=== PATIENT | female | born 1970 | race Caucasian/White ===

== ENCOUNTER → 2019-06-12 12:05 | Outpatient (CLI) | payer OTHER, SELFPAY ==
--- NOTE | 2019-06-12 | IMM_PTH ---
PATIENT: ASHA EDUARDO LOC: [facility] U#:[id number] AGE/SX: 54/F ROOM: RE06/12/[address]: Dr. Malgorzata Mccullough MD : 1970 BED: DIS: SPEC #: [id number] RECD: 06/13/19 11:40 STATUS: ALAN REQ #: [id number] SY: 06/12/19 00:[address]: Malgorzata Mccullough DEPT: IMMUNOHISTOCHEMISTRY RECD BY: Esperanza Vicente ENTERED: 06/13/19 11:41 SP TYPE: IMMUNO OTHR DR: Dr. Chandler Gupta MD Tissues: Left breast, NOS Procedures: CALPONIN-1 (add) CK8 (add) E-CAD (add) HER2 SIMBA (add) DC (add) P40 (add) ER (initial) PHYSICIAN & INSTITUTION [place] [address] SPECIMEN INFORMATION: Tissue Source: Left breast Clinical Info: Left breast mass Specimen Number: [id number] CPT code: 88330, 97336 x3, 40873 x3 METHODOLOGY: Deparaffinized sections of prefer/formalin-fixed tissue or PAP/DQ stained slides are incubated with monoclonal/polyclonal antibodies/oligonucleotide probes. Localization is made via biotin free immunoperoxidase method. Appropriate controls are performed and reacted as expected. Results on target cell population are indicated in the following table: RESULTS: ANTIBODY / CLONE RESULT E-Cad (ECH-6) positive CK8 (77ezbiT11) positive Calponin-1 (SS001E) positive P40 (BC28) positive MORPHOMETRIC ANALYSIS ER (clone 6F11) positive (>95%, strong intensity) DC (clone 16/1E2) positive (>95%, strong intensity) Her-2Neu (clone CB11) negative (0) The prognostic test for HER2 is performed on formalin-fixed paraffin embedded tissue. A 3+ (positive) staining pattern is defined as intense, homogeneous, complete, circumferential membranous staining in >10% of contiguous tumor cells. A similar weak (2+) staining pattern is interpreted as equivocal. XOCHITL follow-up testing is recommended for all equivocal cases. Positivity/negativity for ER/DC is reported if > or < 1% of the tumor cells are immuno- reactive, respectively. The ASCO/CAP criteria is used for scoring. Reference: Journal of Clinical Oncology, 2013; 31:3822-3951 & 2010; 16:1888-3296. Duration of fixation: 6.5 Hrs; Sample Adequate: Yes. These assays have not been validated on decalcified tissues. Results should be interpreted with caution given the likelihood of false negativity on decalcified specimens. These tests were developed and their performance characteristics determined by [facility]. They may not have been cleared or approved by the U.S. Food and Drug Administration. The FDA has determined that such clearance or approval is not necessary. INTERPRETATION: Left breast, biopsy: Ductal carcinoma in situ, low nuclear grade. SHOSHANA:barbra 06/13/19
--- NOTE | 2019-06-12 | BRBX_PTH ---
PATIENT: ASHA EDUARDO LOC: [facility] U#:[id number] AGE/SX: 54/F ROOM: RE06/12/[address]: Dr. Malgorzata Mccullough MD : 1970 BED: DIS: SPEC #: [id number] RECD: 06/12/19 13:57 STATUS: ALAN RE #: [id number] SY: 06/12/19 00:[address]: Malgorzata Mccullough DEPT: SURGICAL PATHOLOGY RECD BY: Joni Ovalle ENTERED: 06/12/19 13:58 SP TYPE: BREAST BX OTHR DR: Dr. Chandler Gupta MD Tissues: Left breast, NOS Procedures: Surgery Specimen Level IV HEADER OPERATION: Left breast biopsy PRE-OP DIAGNOSIS: Left breast mass TISSUE SUBMITTED: Left breast mass ISCHEMIC TIME: 1 minute FIXATION TIME: 6.5 hours MICROSCOPIC DIAGNOSIS Left breast mass, core biopsy: Ductal carcinoma in situ with the following characteristics: Pattern - cribriform Nuclear Grade - 1 Necrosis - not identified Calcifications - not identified Additional findings - fibrocystic changes and intraductal hyperplasia with multifocal atypia and focal changes suggestive of intraductal papilloma. SHOSHANA:barbra 06/13/19 COMMENT Immunohistochemistry ([id number]) supports the above diagnosis. ER/NJ/Ykn5qfl studies are being performed on sections of tumor and the results from this study will be reported separately ([id number]). Case has been reviewed in consultation with Dr. Nelson who concurs with the above diagnosis. IDC:AM MICROSCOPIC DESCRIPTION Slides are reviewed. GROSS DESCRIPTION Received in fixative is one container labeled with the patient's name and designated left breast. The specimen consists of multiple elongated fragments of negron-yellow fibroadipose tissue mixed with blood clots that in aggregate measure 3 x 2.5 x 0.2 cm. The entire specimen is submitted in one cassette. / SHOSHANA:barbra 06/12/19 TC:0 CPT: 86496
--- NOTE | 2019-06-12 12:13 | US_ITS ---
STUDY: ULTRASOUND BREAST - LEFT REASON FOR EXAM: Female, 48 years old. Ultrasound guided left breast biopsy. TECHNIQUE: Axial and longitudinal images of the LEFT breast were performed with a high resolution ultrasound transducer. COMPARISON: None. FINDINGS: LEFT Breast: Under direct sonographic guidance, the surgeon perform multiple core biopsies of the 1 cm x 1.3 cm x 1 cm hypoechoic solid nodule in the retroareolar region of the breasts. US/US Breast Biopsy 1st Lesion IMPRESSION: Successful ultrasound-guided left breast biopsy. ASSESSMENT CATEGORY: BIRADS Category 2: Benign. A letter regarding these results will be sent to the patient by the facility within 30 days. Electronically Signed: Matthew Bardales, at 15:32 EDT , Service support ,
--- NOTE | 2019-06-12 13:22 | PCM.OPRPT ---
Report of Operation Date of Procedure: 06/12/19 Pre-Operative Diagnosis: abnormal lesion seen on left breast ultrasound Post-Operative Diagnosis: same Surgery/Procedure Performed:: US guided left needle core breast biopsy Description of Surgical Findings:: probable fibroadenoma seen in the retroareolar position - slight upper outer quadrant of the left breast Type of Anesthesia:: Local - 1% xylocaine Specimen's removed: left breast tissue Estimated Blood Loss (mL): minimal Description of Procedure: After informed consent was given, the patient was brought to the ultrasound suite. Appropriate time out protocol was followed. She was then placed in the supine position. Using the ultrasound transducer, the suspicious lesion was localized and then marked with a marking pen on the patient?s left breast. The skin at where the biopsy stylus would be entering into the patient?s breast was then cleansed with alcohol and the skin and subcutaneous tissues at the biopsy site were infiltrated with 1% xylocaine. A small skin incision was made with an 11 blade scalpel lateral to the location of the lesion. The lesion was retroareolar, but slightly cephalad and lateral. Holding the transducer in my left hand, I guided the Mammotome biopsy stylus to just beneath the lesion under direct ultrasound guidance. The biopsy trough was then opened and noted under ultrasound guidance, such that it was ensured that the lesion was able to be biopsied. Several core samples of breast tissue were then obtained and this was visualized under ultrasound guidance. A marker clip was then placed into the patient?s breast at the biopsy site and this was visualized under ultrasound guidance. Hemostasis was achieved using pressure. The skin incision was then reapproximated using steristrips and a sterile dressing was applied. The patient tolerated the procedure well. She was discharged from the radiology suite in stable condition. - Complications none noted
== END ==
PROVIDERS: Family Provider Family Medicine; PCP Family Medicine; Referring Provider Surgery; Visit Provider Surgery
DX: D05.12 Intraductal carcinoma in situ of left breast (principal); N63.20 Unspecified lump in the left breast, unspecified quadrant
CPT/HCPCS: 19083; 88305; 88341; 88342

== ENCOUNTER 2019-06-26 08:34 | Day surgery (SDC) | payer OTHER, SELFPAY ==
--- NOTE | 2019-06-22 18:55 | HP.PCM_ITS ---
History and Physical Date of Admission: 06/26/19 Dunia Campbell 1970 ? ? REFERRING PHYSICIAN: Yoalnda Ocampo MD ? CHIEF COMPLAINT: Consult ? HPI: The patient is a 48 year old female presents with abnormal left breast radiological studies. Found on routine screening studies. Denies nipple discharge. Denies palpable breast masses. Denies previous breast biopsies. Denies breast pain. There is no breast or ovarian cancer known in the family. 04/19/19 US/mammo - Focal asymmetry in the left breast central to nipple middle depth, 1.4 cm oval mass in the left breast ?there is a 1.4 cm x 1.4 cm x 0.9 cm oval solid mass in the left breast central to the nipple middle depth. This oval solid mass is hypoechoic. This correlates with mammography findings. There are calcifications within the mass. No abnormalities were seen sonographically in the left axilla. US guided biopsy recommended.? ? US guided left needle core biopsy 06/12/19 DCIS - low grade, multifocal atypia and intraductal papilloma ER/[place] positive, >95% ? ? PAST MEDICAL HISTORY ? Depressive disorder, not elsewhere classified ? ? Hiatal hernia ? Endometriosis, site unspecified ? ? Endometriosis ? Esophageal reflux ? ? Myalgia and myositis, unspecified ? ? Fibromyalgia (myalgia and myositis) ? PAST SURGICAL HISTORY ? APPENDECTOMY ? ? ? D&C, DIAG AND/OR THERAPEUTIC ? ? ? Dilation & curettage ? L'SCOPE DX W/WO BRUSHINGS/WASHINGS ? ? ? Laparoscopy ? L'SCOPE DX W/WO BRUSHINGS/WASHINGS ? ? ? Laparoscopy, lysis adhesions ? LAMINECTOMY,LUMBAR ? ? ? Laminectomy, lumbar ? ? Current Outpatient Medications: albuterol HFA (PROAIR HFA) 90 mcg/actuation inhaler Inhale 2 Puffs as instructed every 4 hours as needed for Wheezing/Shortness of Breath. buPROPion XL (WELLBUTRIN XL) 300 mg 24 hr tablet Take 1 tablet by mouth once daily. venlafaxine ER (EFFEXOR XR) 150 mg 24 hr capsule Take 1 capsule by mouth once daily. Take along with 75 mg capsule venlafaxine ER (EFFEXOR XR) 75 mg 24 hr capsule Take one capsule daily, along with the Effexor XR 150 mg rizatriptan (MAXALT STEWARD RACETRACK) 10 mg disintegrating tablet Take 1 tablet by mouth as needed for Migraine Headache (see administration instructions). May repeat in 2 hours if needed famotidine (PEPCID AC) 20 mg tablet Take 1 tablet by mouth once daily as needed. cyclobenzaprine (FLEXERIL) 10 mg tablet Take 1 tablet by mouth three times daily as needed for Muscle Spasm. promethazine (PHENERGAN) 25 mg tablet Take 1 tablet by mouth every 6 hours as needed for Nausea/Vomiting. hydrOXYzine pamoate (VISTARIL) 25 mg capsule Take 1 capsule by mouth three times daily as needed. cyanocobalamin, vitamin B-12, 5,000 mcg ODT Take 1 tablet by mouth once daily. MULTIVITAMINS W-IRON (ONE DAILY MULTI-VIT W-MINERAL ORAL) Take by mouth. ? ? ALLERGIES: Patient has no known allergies. ? PERSONAL HISTORY: Social History Socioeconomic History Marital status: Spouse name: Not on file Number of children: Not on file Years of education: Not on file Highest education level: Not on file Occupational History Not on file Social Needs Financial resource strain: Not on file Food insecurity: Worry: Not on file Inability: Not on file Transportation needs: Medical: Not on file Non-medical: Not on file Tobacco Use Smoking status: Former Smoker Quit date: 05/08/1998 Years since quittin.9 Smokeless tobacco: Never Used Substance and Sexual Activity Alcohol use: Yes Comment: occasionaly Drug use: No Sexual activity: Yes Partners: Male control/protection: None Lifestyle Physical activity: Days per week: Not on file Minutes per session: Not on file Stress: Not on file Relationships Social connections: Talks on phone: Not on file Gets together: Not on file Attends denominational service: Not on file Active member of club or organization: Not on file Attends meetings of clubs or organizations: Not on file Relationship status: Not on file Intimate partner violence: Fear of current or ex partner: Not on file Emotionally abused: Not on file Physically abused: Not on file Forced sexual activity: Not on file Other Topics Concerns: Not on file Social History Narrative Not on file ? FAMILY HISTORY ? Diabetes Mother ? ? Psychiatry Mother ? ? Depression ? Stroke Mother ? ? COPD Father ? ? Alcohol/Drug Father ? ? Allergies Father ? ? No Known Problems Sister ? ? Cancer Brother ? ? Diabetes Brother ? ? Diabetes Brother ? ? ? REVIEW OF SYSTEMS: General: The patient notes fatigue, denies weight loss, denies weight gain, denies feeling hot, and denies feelings of cold. Eyes: The patient denies glaucoma, denies eye injury/surgery, wears glasses or contacts. Ear/Nose/Throat: The patient notes allergies, denies hayfever, denies ear infections, and denies bloody noses. Cardiovascular: The patient denies chest pain, denies heart disease, denies high blood pressure,denies cardiac stent, denies prior heart attack, denies irregular heart beat, denies high cholesterol, denies poor circulation, denies heart failure, other cardiac issues, denies claudication, notes cold feet, denies peripheral arterial stent. Respiratory: The patient denies tuberculosis, denies pneumonia, notes frequent cough, denies pulmonary embolism, denies shortness of breath, and denies coughing up blood. Gastrointestinal: The patient notes difficulty swallowing, notes acid reflux, denies ulcers, denies vomiting, denies jaundice/hepatitis, denies gallbladder problems, denies black or tarry stools, denies hemorrhoids, denies bleeding from rectum, denies diverticulitis, notes constipation, denies diarrhe a, notes loss of stool control, and notes hernias. Kidney/Bladder: The patient notes kidney stones, notes urine infections, and denies bloody urine. Skin: The patient denies a history of skin cancer, denies bleeding/changing moles, and NOTES a history of skin rash. Neurologic: has migraine headaches, denies a history of epilepsy/convulsions, denies stroke/TIA, has sciatica, has intermittent right arm numbness Psychiatric: The patient notes psychiatric medications, notes depression, and denies voices, denies substance abuse. Endocrine: The patient denies thyroid disorders, notes diabetes, and denies hormonal problems. Hematologic: The patient denies a history of bruising, denies bleeding, and denies anemia, denies blood clots. Infections: The patient denies a history of measles and mumps, denies rheumatic fever, and denies sexually transmitted diseases. Musculoskeletal: has fibromyalgia, has chronic back and joint pain, notes sciatica, denies knee/foot trouble, denies arthritis, or denies gout. Obstetrical: menarche onset at age 10, , first at age 20, denies breast feeding, BCP use early teens for endometriosis, LMP 03/21, had diagnostic laparoscopy x 2 for endometrial fulguration ? ? PHYSICAL EXAMINATION: General: The patient is 48 year old female, well nourished, well hydrated in no acute distress. The patient is oriented to time, place, and person. VITALS: Blood pressure 140/88, pulse (!) 125, height 156.2 cm (5' 1.5), weight 74.1 kg (163 lb 6.4 oz), SpO2 97 %. Body mass index is 30.37 kg/m?. Head ? Normocephalic. EOM intact with sclera clear and no icterus noted. Wearing glasses. Mouth with mucus membranes moist. Neck - supple with no jugular venous distention noted. Trachea is midline. No carotid bruits noted. No thyroid enlargement or thyroid nodules detected. No masses noted. Chest/breast ? no asymmetry of breasts noted, no suspicious skin lesions noted, no nipple discharge and both nipples everted, no breast masses noted Lungs ? clear to auscultation. Normal breath sounds. No rales/rhonchi/wheezing noted. No labored breathing noted, such as retractions. No cough heard. Heart ? normal S1 and S2 auscultated. No rubs/clicks/murmurs noted. Regular rhythm Abdomen ? soft and benign. Normal bowel sounds No abdominal bruits noted. No distention noted. Extremities ? no calf tenderness noted. No pitting edema noted. . Skin ? normal skin integrity. Lymph ? no cervical adenopathy detected, no supraclavicular adenopathy detected, no axillary adenopathy detected Neurological ? gait normal, no focal deficits noted. Psych ? calm and appropriate RADIOLOGIC STUDIES: As Noted ? IMPRESSION: left breast DCIS ? PLAN: I have discussed the above with the patient and her who is present with her. I have explained DCIS to them and explained the recommended treatment - lumpectomy followed by radiation therapy or mastectomy The patient chooses the former. I have explained the procedure of left breast lumpectomy via wire localization. I have counseled the patient as to the risks of the procedure, including but not limited to: infection, bleeding, injury to any blood vessels/nerves, scar tissue, wound infections, missing the lesion, need for further excision of positive margins, complications of anesthesia, etc. ? the patient understands. The patient wishes to proceed. I have answered all questions to the patient?s satisfaction and the patient has no further questions. . Return to Clinic: The patient is instructed to follow-up with me as per above
[2019-06-26] VITALS (8 sets, daily range): BP systolic 128–151; BP diastolic 78–102; PULSE 79–95; RESP 16–20; TEMP 36.4–37; O2SAT 96–100; BMI 30.2
--- NOTE | 2019-06-26 | BRBX_PTH ---
PATIENT: ASHA EDUARDO LOC: [facility] [place] U#:[id number] AGE/SX: 48/F ROOM: RE06/26/[address]: Dr. Malgorzata Mccullough MD : 1970 BED: DIS: 06/26/2019 SPEC #: [id number] RECD: 06/26/19 11:53 STATUS: ALAN ONOFRE #: [id number] SY: 06/26/19 00:[address]: Malgorzata Mccullough DEPT: SURGICAL PATHOLOGY RECD BY: Esperanza Vicente ENTERED: 06/26/19 12:51 SP TYPE: BREAST BX OTHR DR: Dr. Chandler Gupta MD Tissues: Left breast, NOS Procedures: Surgery Specimen Level V HEADER OPERATION: Breast lumpectomy via wire localization PRE-OP DIAGNOSIS: Low grade multifocal atypia and intraductal papilloma left breast TISSUE SUBMITTED: Left breast tissue, long suture - lateral border, short suture - superior border, two short sutures - posterior border MICROSCOPIC DIAGNOSIS Left breast, lumpectomy with wire-guided localization: Intraductal papilloma with fibrocystic changes and intraductal hyperplasia with focal atypia (1 cm in greatest dimension). Changes consistent with previous biopsy site. See comment. SHOSHANA:barbra 06/28/19 COMMENT DUCTAL CARCINOMA IN SITU SUMMARY: (including previous specimen [id number]) Specimen - partial breast Procedure - excision with wire-guided localization and stereotactic core biopsy. Lymph node sampling - no lymph node present Specimen integrity - single intact specimen Specimen size - lumpectomy specimen 8 x 5 x 2 and stereotactic core biopsy specimen 3 x 2.5 x 0.2 cm Specimen laterality - left Tumor site - not specified Size (extent) of DCIS - estimated size of DCIS - 0.3 cm in greatest dimension (present only in stereotactic core biopsy specimen). Number of blocks with DCIS - 1 Number of blocks examined - 13 (including stereotactic core biopsy specimen) Histologic type - ductal carcinoma in situ Architectural pattern - cribriform Nuclear grade - Grade 1 Necrosis - not identified Calcification - not identified Margins - margins uninvolved by DCIS. The biopsy cavity is noted in the gross specimen which consists of only intraductal papilloma 0.5 cm away from the closest posterior margin. Treatment effect: response to presurgical (neoadjuvant) therapy - no known presurgical therapy. Lymph nodes - not present in the submitted specimen. Distant metastasis - not applicable Additional Pathologic Findings - intraductal papilloma with fibrocystic changes and intraductal hyperplasia with focal atypia. Fibrocystic changes, intraductal hyperplasia with focal atypia (in addition to area of intraductal papilloma). Changes consistent with previous biopsy site. Ancillary Studies from previous specimen ([id number] / [id number]): ER - positive (>95%, strong intensity) NM - positive (>95%, strong intensity) Her2 herberth ([facility]) - negative (0) Microcalcifications - present in non-neoplastic tissue. Pathologic Staging: pTis(DCIS) pNx Mx The above summary is in compliance with [employer] [place] [employer] (CAP) Cancer Protocols Checklist and [place] [employer] Committee on Cancer (AJCC), Staging Manual, 8th Ed. Please make reference to previous specimen ([id number]) left breast mass, core biopsy with diagnosis of ductal carcinoma in situ, fibrocystic changes and intraductal hyperplasia with multifocal atypia and focal changes suggestive of intraductal papilloma. Microcalcifications are noted in the area of intraductal papilloma. Lumpectomy specimen does not show ductal carcinoma in situ. Case has been reviewed in consultation with Dr. Nelson who concurs with the above diagnosis. IDC:AM MICROSCOPIC DESCRIPTION Slides are reviewed. GROSS DESCRIPTION Received fresh for intraoperative consultation labeled with the patient's name is a specimen designated left breast tissue. The specimen consists of a piece of fibroadipose tissue with needle localization weighing 31 gm and measuring 8 x 5 x 2 cm. The specimen is oriented as follows: long suture - lateral border, short suture - superior border, two short sutures - posterior border. The specimen is inked as follows: anterior - yellow, posterior - black, superior - blue, inferior - green, medial - red and lateral - orange. Serial sections reveal a negron nodule measuring 1 x 1 x 0.5 cm and this is 0.5 cm away from the closest posterior margin. This information is conveyed to the surgeon intraoperatively. / AM:barbra 06/26/19 Sections of the rest of the specimen reveal negron-yellow adipose cut surfaces mixed with fibrous areas. [employer] sections are submitted as follows: 1 - perpendicular medial, lateral and anterior margins, 25 - entire nodule including adjacent closest margins, 6-12 - veterans employment representative sections adjacent to and away from the nodule. / SHOSHANA:barbra 06/27/19 TC:5 CPT: 36960, 96454
[2019-06-26] MEDS: Lactated Ringers 1,000 ML 75 ML IV (07:00)
[2019-06-26 08:55] LABS: Internal QC Validated? YES +Cl - CLEAR BKGD; Pregnancy, Urine Negative Negative
--- NOTE | 2019-06-26 10:03 | OP.PCM_ITS ---
Report of Operation Date of Procedure: 06/26/19 Pre-Operative Diagnosis: left breast ductal carcinoma in situe Post-Operative Diagnosis: same Surgery/Procedure Performed:: left breast lumpectomy via wire localization Description of Surgical Findings:: retroareolar area lesion - also palpable density sulphate tester: Urbano Shi Type of Anesthesia:: General Anesthesiologist: Reema Padgett Specimen's removed: left breast tissue Estimated Blood Loss (mL): < 10 ml Fluids Replaced: 800 ml RL Description of Procedure: After informed consent was given, the patient was brought into the Breast Stereotactic Radiology suite. Appropriate time out protocol was followed. She was then placed in the prone position on the [facility] stereotactic table. The patient?s left breast was placed in the opening at the head of the table. A rug inspector compression mammogram was then obtained in the lateral view. The marker clips that were previously placed was identified. Both these marker clips would be targeted for removal. Stereo pictures of the lesion were then taken for XYZ coordinates. Two sets of coordinates were obtained. The Kopans needle was then positioned where it would be entering into the patient?s left breast for one of the marker clips. The skin at this site was then cleansed with a surgical skin preparation. The skin and subcutaneous tissues at this site were then infiltrated with 1% xylocaine. The Kopans needle was then positioned into the patient?s breast at the proper coordinates of depth. The Kopans needle was then positioned where it would be entering into the patient?s left breast for the other marker clip. The skin at this site was then cleansed with a surgical skin preparation. The skin and subcutaneous tissues at this site were then infiltrated with 1% xylocaine. The Kopans needle was then positioned into the patient?s breast at the proper coordinates of depth. The patient was then placed in the supine position and the wires were taped into place. A unilateral mammogram in the CC and MLO view were then taken for use in the OR. The patient tolerated this portion of the procedure well and was brought to the AC awaiting surgery in the OR. The patient was then brought to the Operating Room. Appropriate time out protocol was followed. She was then placed on the operating table in the supine position. Two wires had already been placed in the stereotactic biopsy room in the radiology department as described above. The left breast with the wires in place was then prepped with a sterile surgical skin preparation and sterile surgical drapes were placed. The skin and subcutaneous tissues at the site of the breast lesion was then infiltrated with 0.25% marcaine with epinephrine. A transverse curvilinear skin incision was then made with a 15 blade scalpel on the lateral areolar border. It was carried down through to the subcutaneous tissues. Hemostasis was controlled with electrocautery. The wires were then palpated out and brought into the wound from outside. The breast tissue surrounding the wire was then carefully palpated out and from the surrounding tissues using electrocautery. There was a palpable nodule noted. The breast tissue, once from the breast, was then forwarded to the r adiology department, where a specimen mammogram revealed that both marker clips were within the specimen. The breast tissue was then forwarded to pathology for analysis. Pathology review revealed that the closest margin was posterior with a measurement of 5mm. The wound cavity was carefully examined. No further suspicious tissue was palpated or visualized. Hemostasis was carefully controlled with electrocautery. The subdermal tissues were then approximated with vicryl suture. The incision was then reapproximated close using running monocryl suture. Dermibond was applied to reinforce the skin closure. A sterile dressing was then applied. The patient was then brought to the Recovery Room in stable condition. - Complications none noted - Admit VTE Documentation VTE Present on Admission: Yes
--- NOTE | 2019-06-26 10:13 | DCINST_ITS ---
Discharge Diet: No Restrictions Discharge Activity: Return to Normal Activity, May not drive while taking narcotic pain medications. Call your doctor if your incision/area has: Continuous Slow Oozing, Foul Smelling Discharge Call your doctor if you observe: Fever of 101 or Higher Additional Dressing/Incision Instructions:: Leave dressings in place. May get wet in shower. Do not soak - no tub baths/swimming Additional Instructions: Recommended pain medication regimen: take 650 mg acetaminophen (Tylenol), then in three hours take 600 mg ibuprofen (Motrin), then in three hours take 650 mg acetaminophen, then in three hours take 600 mg ibuprofen, and so on for the next 1-2 days Take prescription narcotic medication for breakthrough pain and at night as needed Wear supportive bra during the day Apply ice packs to area liberally as tolerated Avoid excessive sudden pressure to left breast Allergies/Adverse Reactions: Allergies No Known Allergies Allergy (Verified 06/21/19 14:46) Medications to take at Discharge proMETHazine tablet [Phenergan] 25 mg PO Q6H PRN PRN #10 tablet 04/22/15 Albuterol Inhaler [Ventolin Hfa (SP)] 1 - 2 puff INHALATION Q4H PRN PRN 06/21/19 Cyanocobalamin (Vitamin B-12) [Vitamin B12] 5,000 mcg PO DAILY 06/21/19 Famotidine [Acid [place]er] 20 mg PO LUNCH 06/21/19 Hydroxyzine Pamoate [Vistaril] 25 mg PO PRN PRN 06/21/19 Rizatriptan Benzoate [Rizatriptan] 10 mg PO PRN PRN 06/21/19 Venlafaxine HCl [Venlafaxine HCl ER] 225 mg PO LUNCH 06/21/19 buPROPion XL [Wellbutrin Xl] 300 mg PO LUNCH 06/21/19 cycloBENZAPRine HCl [Flexeril] 10 mg PO PRN PRN 06/21/19 Hydrocodone Bitart/Apap 5-325 [[place] 5MG-325MG] 1 tab PO Q8H PRN PRN 5 Days #15 tab 06/26/19 The following prescriptions were given: Hydrocodone Bitart/Apap 5-325 [[place] 5MG-325MG] 1 tab PO Q8H PRN PRN 5 Days #15 tab PRN Reason: Pain Prescription Printed Primary Care Physician: Chandler Gupta MD [Primary Care Provider] - Please Follow Up With: Malgorzata Mccullough MD - call When: to be seen in one week, please call for date and time, thank you
--- NOTE | 2019-06-26 10:21 | BI_ITS ---
SURGICAL BREAST SPECIMEN RADIOGRAPH CLINICAL: Document presence of tissue clip marker in biopsy specimen. FINDINGS: Specimen shows presence of tissue clip marker. Electronically Signed: Matthew Bardales, at 15:17 EDT , Service support , BI/Breast Biopsy Specimen
[2019-06-26] MEDS: Cefazolin 2 GM in 0.9% Normal Saline 100 ML IV (10:37)
[2019-06-26] MEDS: HYDROcodone Bitartrate/Apap 5/325 Tablet PO (13:25)
== END 2019-06-26 14:50 | disposition home or self-care (01) ==
LOC: SDC 08:35 → AC 08:35
PROVIDERS: Anesthesiology; Family Provider Family Medicine; PCP Family Medicine; Referring Provider Surgery; Visit Provider Surgery
PROC: (CPT 19125; principal; 2019-06-26 09:45)
DX: D24.2 Benign neoplasm of left breast (principal); E11.9 Type 2 diabetes mellitus without complications; F32.9 Major depressive disorder, single episode, unspecified; J44.9 Chronic obstructive pulmonary disease, unspecified; K21.9 Gastro-esophageal reflux disease without esophagitis; K44.9 Diaphragmatic hernia without obstruction or gangrene; M79.7 Fibromyalgia; Z17.0 Estrogen receptor positive status [ER+]; Z79.899 Other long term (current) drug therapy; Z87.891 Personal history of nicotine dependence
CPT/HCPCS: 00400; 19125; 19281; 76098; 81025; 88305; 88307; J7120; J2405

== ENCOUNTER 2021-05-10 21:38 | Emergency (ER) | payer OTHER, SELFPAY ==
[2019-06-26 09:21] VITALS: BMI 30.2
[2021-05-10 21:38] VITALS: BP 179/95; PULSE 88; RESP 22; TEMP 36.7; O2SAT 99; BMI 30.2
--- NOTE | 2021-05-10 22:26 | EDS_ITS ---
HPI History of Present Illness Chief Complaint: Eye Problem Informant: patient Onset/Context/Timing Location: Left Eye Onset: Today Context: Sudden Onset Timing: Continuous Current Severity: Mild Maximum Severity: Mild Associated Symptoms Associated Symptoms - Eyes: Burning and Foreign body sensation History of injury: Uncertain Visual correction: Glasses Narrative Narrative: 50-year-old female who wears glasses. Does not wear contacts and has never had eye surgery. 7 AM today at work wearing glasses she felt like something got in her eye. She also states it was lubricant on her hands and she was concerned it may be something like that got on her eyes. Said she used eyedrops he felt it was getting better and then tonight the pain is worse again. Prior similar symptoms: Yes Recent Illness/Hospitalization: No PFSH PFSH Home Medications promethazine 25 mg PO Q6H PRN PRN #10 tablet 04/22/15 [Rx Last Taken Unknown] albuterol sulfate 1 - 2 puff INHALATION Q4H PRN PRN 06/21/19 [History Last Taken Unknown] bupropion HCl 300 mg PO LUNCH 06/21/19 [History Last Taken Unknown] cyanocobalamin (vitamin B-12) 5,000 mcg PO DAILY 06/21/19 [History Last Taken Unknown] cyclobenzaprine 10 mg PO PRN PRN 06/21/19 [History Last Taken Unknown] famotidine 20 mg PO LUNCH 06/21/19 [History Last Taken Unknown] hydroxyzine pamoate 25 mg PO PRN PRN 06/21/19 [History Last Taken Unknown] rizatriptan 10 mg PO PRN PRN 06/21/19 [History Last Taken Unknown] venlafaxine 225 mg PO LUNCH 06/21/19 [History Last Taken Unknown] Allergy/AdvReac Type Severity Reaction Status Date / Time No Known Allergies Allergy Verified 06/21/19 14:46 Social History Smoking Status: Former smoker ROS ROS ED ROS Narrative Denies recent illness. Review of Systems ROS Unobtainable: Denies due to encephalopathy Constitutional Constitutional ED: Denies fever(s) Eyes Eyes: Denies change in vision ENT ENT ED: Denies ear pain Cardiovascular Cardiovascular: Denies chest pain Respiratory/Chest Respiratory/Chest: Denies dyspnea Gastrointestinal Gastrointestinal: Denies abdominal pain Genitourinary Genitourinary ED: Denies dysuria Musculoskeletal Musculoskeletal: Denies myalgias Integumentary Denies rash Neurologic Neurologic: Denies headache(s) Psychiatric Psychiatric: Denies depression Endocrine Endocrinology: Denies polyuria Hematologic/Lymphatic Hematologic/Lymphatic: Denies easy bruising Allergic/Immunologic Allergic/Immunologic ED: Denies urticaria EXAM Physical Exam Narrative Exam Narrative: Middle-aged female no acute distress. HEENT exam left eye watering. Not swollen. Not red. No discharge. Pupils round reactive light e xtra motions are intact. There is no periorbital swelling or redness. There is no preauricular lymphadenopathy. Exam the left eye with slit lamp shows no acute abnormality. I do not see an obvious foreign body or abrasion. Tetracaine will be applied and fluorescein and slit-lamp exam will be performed. Lungs are clear. Heart regular rhythm. Otherwise exam unremarkable. Const Vital Signs: 05/10/21 21:38 Temperature 98.0 F Temperature Source Temporal Pulse Rate 88 Respiratory Rate 22 H Blood Pressure 179/95 H Blood Pressure Mean 123 Pulse Ox 99 Oxygen Delivery Method Room Air Positive well nourished and well developed General Appearance ED: well developed and NAD HEENT atraumatic; Negative for trauma Eyes General Eye ED: Yes normal appearance of both eyes Resp normal respiratory effort and clear to auscultation bilaterally Cardio regular rate and regular rhythm GI non-tender and non-distended Auscultation: normoactive bowel sounds Palpation: soft Extremity normal to inspection General Extremety ED: Negative for edema General Extremity: Negative for edema Neuro oriented x3 Sensorium / Orientation: alert, oriented to person, oriented to place and oriented to time Psych Mood & Affect: depressed Skin Rashes: no rashes MDM MDM MDM Narrative Medical decision making narrative: Patient with concern for either form by the left thigh, corneal abrasion or other. Tetracaine was instilled in her left eye which she quickly got significant relief. Then placed fluorescein and did a slit-lamp examination. There is no foreign body. There is no ulcer. There is a large corneal abrasion involving about 50% of her pupil and iris. The lower half. I discussed this with the patient and her significant other. She will be discharged with the tetracaine for pain to be used for the next 24 hours. Follow-up with ophthalmology. Bacitracin ophthalmic ointment 2-3 times a day. Discharge Plan Triage Chief Complaint: Eye Problem ED Provider: Jose Mckeon Dx/Rx/DC Orders Clinical Impression: Corneal abrasion Instructions: ED Corneal Abrasion Prescriptions: No Action promethazine 25 MG tablet 25 mg PO Q6H PRN PRN (Reason: Nausea) Qty: 10 RF: 0 cyclobenzaprine 10 MG tablet 10 mg PO PRN PRN (Reason: Spasms) RF: 0 rizatriptan 10 MG tablet 10 mg PO PRN PRN (Reason: migraines) RF: 0 hydroxyzine pamoate 50 MG capsule 25 mg PO PRN PRN (Reason: Rash/Topical Irritation) RF: 0 famotidine 20 MG tablet 20 mg PO LUNCH RF: 0 albuterol sulfate 1 INHALER inhaler 1 - 2 puff inhalation Q4H PRN PRN (Reason: Sob &/Or Wheezing) RF: 0 bupropion HCl 300 MG tablet extended release 24 hr 300 mg PO LUNCH RF: 0 venlafaxine 225 MG tablet extended release 24hr 225 mg PO LUNCH RF: 0 cyanocobalamin (vitamin B-12) 5,000 MCG tablet,disintegrating 5,000 mcg PO DAILY RF: 0 Primary Care Provider: Chandler Gupta Referrals: Braden Schilling MD [STAFF PHYSICIAN] - 2 Days Chandler Gupta MD [Primary Care Provider] - Activity Restrictions/Additional Instructions: You may use the eyedrops I gave you as well tetracaine for pain relief for the next 24 hours. Would not use them past midnight tomorrow night because they returned healing. Place antibiotic ointment and dry twice a day till gone. Cool compresses or ice to decrease swelling and discomfort. Tylenol or Motrin for pain. Sunglasses moving clear. Call and follow-up with Dr. Braden Schilling of [facility] to be reevaluated to ensure that your corneal abrasion is healing. Disposition Disposition: Home, Self Care
[2021-05-10 23:24] VITALS: RESP 16
== END 2021-05-10 23:24 | disposition home or self-care (01) ==
PROVIDERS: Emergency Provider Emergency Medicine; PCP Family Medicine
DX: S05.02XA Injury of conjunctiva and corneal abrasion without foreign body, left eye, initial encounter (principal); X58.XXXA Exposure to other specified factors, initial encounter; Y93.89 Activity, other specified; Y92.9 Unspecified place or not applicable; Y99.9 Unspecified external cause status; Z87.891 Personal history of nicotine dependence
CPT/HCPCS: 99282

== ENCOUNTER 2021-08-31 11:20 | Emergency (ER) | payer OTHER, SELFPAY ==
[2021-08-31 11:20] VITALS: BP 154/111; PULSE 94; RESP 16; TEMP 36.3; O2SAT 99; BMI 31.7
--- NOTE | 2021-08-31 13:15 | EX.ED.VIS.EY ---
HPI History of Present Illness Chief Complaint: Eye Problem Informant: patient Onset/Context/Timing Location: Left Eye Onset: Today Context: Sudden Onset Timing: Continuous Worsened by: Light Relieved by: Nothing Associated Symptoms Associated Symptoms - Eyes: Burning, Pain, Photophobia and Redness; Negative for Crusting, Drainage, Eyelid swelling, Foreign body sensation, Itching and Matting History of injury: Yes and - (Patient rubbed her left eye) Visual correction: Glasses Narrative Narrative: Patient presents with left eye pain that began today. Patient states it began rather suddenly. Patient states it has been constant. Patient states she rubbed her eye and thinks that there may have been something in her eye when she rubbed it. Patient thinks she may have scratched her eye because of this. Patient admits to some redness and burning in her left eye. Patient denies any foreign body sensation. Patient denies any discharge or drainage. Patient admits to some blurred vision in her left eye. Patient states she normally wears glasses. [facility] Medical History (Updated 08/31/21 @ 15:[address] Darius Isabel DO) Anxiety Endometriosis Fibromyalgia Home Medications promethazine 25 mg PO Q6H PRN PRN #10 tablet 04/22/15 [Rx Last Taken Unknown] albuterol sulfate 1 - 2 puff INHALATION Q4H PRN PRN 06/21/19 [History Last Taken Unknown] bupropion HCl 300 mg PO LUNCH 06/21/19 [History Last Taken Unknown] cyanocobalamin (vitamin B-12) 5,000 mcg PO DAILY 06/21/19 [History Last Taken Unknown] cyclobenzaprine 10 mg PO PRN PRN 06/21/19 [History Last Taken Unknown] famotidine 20 mg PO LUNCH 06/21/19 [History Last Taken Unknown] hydroxyzine pamoate 25 mg PO PRN PRN 06/21/19 [History Last Taken Unknown] rizatriptan 10 mg PO PRN PRN 06/21/19 [History Last Taken Unknown] venlafaxine 225 mg PO LUNCH 06/21/19 [History Last Taken Unknown] Allergy/AdvReac Type Severity Reaction Status Date / Time No Known Allergies Allergy Verified 08/31/21 11:23 Surgical History (Updated 08/31/21 @ 13:[address] Darius Isabel DO) History of back surgery Hx of appendectomy Hx of laparoscopy Social History Smoking Status: Former smoker ROS ROS ED Constitutional Constitutional ED: Denies chills or fever(s) Eyes Eyes: Reports blurry vision; Denies change in vision ENT ENT ED: Reports rhinorrhea; Denies sore throat Cardiovascular Cardiovascular: Denies chest pain or palpitations Respiratory/Chest Respiratory/Chest: Denies cough or dyspnea Gastrointestinal Gastrointestinal: Denies nausea or vomiting Genitourinary Genitourinary ED: Denies dysuria or hematuria Musculoskeletal Musculoskeletal: Reports back pain and neck pain Integumentary Denies abscess or rash Neurologic Neurologic: Reports headache(s); Denies weakness Allergic/Immunologic Allergic/Immunologic ED: Denies mouth swelling or urticaria EXAM Physical Exam Const Vital Signs: 08/31/21 11:20 Temperature 97.4 F L Temperature Source Temporal Pulse Rate 94 Respiratory Rate 16 Blood Pressure 154/111 H Blood Pressure Mean 125 Pulse Ox 99 Oxygen Delivery Method Room Air Positive well nourished and well developed General Appearance ED: well developed HEENT atraumatic Eyes General Eye ED: Yes normal appearance of both eyes and normal light reflex Alignment: alignment normal Periorbital: periorbital findings normal Eyelid: eyelids normal Conjunctiva: conjunctiva normal Sclera: sclera normal Pupil: PERRL EOM: Negative for EOM abnormal Direct Ophthalmoscopy: normal light reflex Slit Lamp: slit lamp exam performed with fluorescein Neck supple and no JVD Neuro oriented x3, CN's II-XII intact bilaterally, moves all extremities and no sensory deficits noted Sensorium / Orientation: alert MDM MDM MDM Narrative Medical decision making narrative: Fluorescein dye and tetracaine was applied to the left eye. Under slit lamp examination, there is a superficial abrasion over the superior medial aspect of the left cornea. There are no ulcerations noted. Patient states she has bacitracin ophthalmic ointment at home from her previous corneal abrasion. Patient was instructed to use this 3 times daily. Patient was instructed to follow-up with her primary care physician or eye doctor in 2 to 3 days. Patient understood and was agreeable with the plan. All questions were answered. Discharge Plan Triage Chief Complaint: Eye Problem ED Provider: Darius Isabel Dx/Rx/DC Orders Clinical Impression: Corneal abrasion Instructions: ED Corneal Abrasion Prescriptions: No Action promethazine 25 MG tablet 25 mg PO Q6H PRN PRN (Reason: Nausea) Qty: 10 RF: 0 cyclobenzaprine 10 MG tablet 10 mg PO PRN PRN (Reason: Spasms) RF: 0 rizatriptan 10 MG tablet 10 mg PO PRN PRN (Reason: migraines) RF: 0 hydroxyzine pamoate 50 MG capsule 25 mg PO PRN PRN (Reason: Rash/Topical Irritation) RF: 0 famotidine 20 MG tablet 20 mg PO LUNCH RF: 0 albuterol sulfate 1 INHALER inhaler 1 - 2 puff inhalation Q4H PRN PRN (Reason: Sob &/Or Wheezing) RF: 0 bupropion HCl 300 MG tablet extended release 24 hr 300 mg PO LUNCH RF: 0 venlafaxine 225 MG tablet extended release 24hr 225 mg PO LUNCH RF: 0 cyanocobalamin (vitamin B-12) 5,000 MCG tablet,disintegrating 5,000 mcg PO DAILY RF: 0 Primary Care Provider: Chandler Gupta Referrals: Chandler Gupta MD [Primary Care Provider] - 2 Days Disposition Disposition: Home, Self Care
[2021-08-31] MEDS: Fluorescein 1 MG STRIP 1 STRIP OPHTHALMIC (13:31)
[2021-08-31] MEDS: Tetracaine 0.5% Ophthalmic Bottle OPHTHALMIC (14:08)
[2021-08-31 15:24] VITALS: BP 145/99; PULSE 78; RESP 16; O2SAT 97
== END 2021-08-31 15:25 | disposition home or self-care (01) ==
PROVIDERS: Emergency Provider Emergency Medicine; PCP Family Medicine
DX: S05.02XA Injury of conjunctiva and corneal abrasion without foreign body, left eye, initial encounter (principal); X58.XXXA Exposure to other specified factors, initial encounter; Y93.9 Activity, unspecified; Y92.89 Other specified places as the place of occurrence of the external cause; Y99.8 Other external cause status; Z87.891 Personal history of nicotine dependence; F41.9 Anxiety disorder, unspecified
CPT/HCPCS: 99282